=== PATIENT | female | born 1950 | race Caucasian/White ===

== ENCOUNTER 2016-06-04 08:32 | Observation (INO) | payer BC, OTHER ==
--- NOTE | ~2016-06-04 | DS ---
Discharge Summary [id number] [place]. [address] NAME: IRIS BYERS : 46 STATUS : DIS Laina PAT#: [id number] AGE: 65 ADM/REG DATE : 06/04/16 MR#: [id number] REPORT SERV DATE: 06/05/16 DICTATED BY: NARA CAMIOL DATE: 06/04/16 REPORT STATUS : Draft TRANSCRIBED BY: MODL DATE: 06/04/16 ADMISSION DATE: 06/04/2016 DISCHARGE DATE: 06/04/2016 PRINCIPAL DIAGNOSIS: Rectal prolapse with mild lower gastrointestinal bleeding. SECONDARY DIAGNOSIS: 1. Chronic obstructive pulmonary disease. 2. Hemorrhoids. 3. Rectal tear. HISTORY OF PRESENT ILLNESS: Please see my dictation from 06/04. HOSPITAL COURSE: Admitted in transfer for rectal prolapse which upon arrival to the hospital was found to not be prolapsed at all but with stigmata of bleeding from other source being evident and external hemorrhoids which were not anticipated to be reducible. The patient did upon straining for a bowel movement did in fact re-prolapse her rectum. She was seen by colorectal surgeon, Dr. Kia Pena, who was able to reinsert the rectal tissue. No further bleeding was evident. She was instructed to take laxatives every day and not strain with bowel movements but following up with Dr. Pena in her office as an outpatient. At discharge, she was found to be on 2 beta blockers, was taken off atenolol, left on Coreg with benazepril added to her regimen. Other medications remained unchanged. She will follow up with Dr. Kia Pena as scheduled in two weeks. TATUM/HUNTER Nara Camilo M.D. / [id number] CC: Vitor Howard N.P. Shauna Lorenzo-Rivero, M.D.
--- NOTE | ~2016-06-04 | CN ---
Consultation Report [facility] [address] [place]. [address] NAME: IRIS HOLLIS : 46 STATUS : ADM Laina PAT#: [id number] AGE: 65 ADM/REG DATE : 06/04/16 MR#: [id number] REPORT SERV DATE: 06/04/16 DICTATED BY: NARA CAMILO DATE: 06/04/16 REPORT STATUS : Draft TRANSCRIBED BY: MODL DATE: 06/04/16 DATE OF CONSULTATION: 06/04/2016 REASON FOR CONSULTATION: Lower GI bleed and believed to be rectal prolapse. HISTORY OF PRESENT ILLNESS: Ms Hollis is a 65-year-old female with COPD, hypertension, coronary artery disease, who presents to [facility] with a chief complaint of having blood in her panties. The patient was found to have what was believed to be a rectal prolapse. They tried to reduce the prolapse, however, it would not reduce. The patient denies any pain there. She states this bleeding has only occurred for the last day. She does have a history of chronic constipation with small pebble-like stools. She denies any bleeding from elsewhere. She denies any nausea, vomiting, although has had a sour stomach. Her appetite has been okay. She denies weight loss. The patient has had some occasional headaches, but no chest pain. No abdominal pain. No shortness of breath, coughing, or wheezing. No swelling. No fevers or chills. Remainder of review of systems are negative. PAST MEDICAL HISTORY: As mentioned above. PAST SURGICAL HISTORY: She has had history hysterectomy, never had a colonoscopy before. MEDICATIONS: Include Zantac, Coreg, atenolol, Synthroid, and Percocet. ALLERGIES: NO DRUG ALLERGIES. FAMILY HISTORY: Positive for prostate cancer in her brother. SOCIAL HISTORY: The patient quit smoking a couple of months ago. She lives with her brother now. PHYSICAL EXAMINATION: VITAL SIGNS: On presentation, blood pressure 132/88, pulse 80, respirations 16, afebrile. GENERAL: Awake, alert, and oriented x3. No apparent distress. HEENT: Pupils are equal and reactive to light. Extraocular movements are intact. No cranial nerve deficits. Moist mucous membranes. Normal oropharynx. NECK: Revealed no jugular venous distention, carotid bruits, lymphadenopathy, or goiter. CARDIAC: Regular rate and rhythm. No murmurs, gallops, or rubs. LUNGS: Clear to auscultation bilaterally with good respiratory excursion. ABDOMEN: Nondistended, nontender. Bowel sounds normoactive. EXTREMITIES: No cyanosis, clubbing, or edema. Good pulses and capillary refill. NEUROLOGICALLY: She had normal sensory and motor function, normal gait and station. RECTAL: Significant for some external hemorrhoids, which were not inflamed, nonbleeding at 6 o'clock and at 12 o'clock, however, there was actually a small rectal tear with stigmata of recent bleeding. There was no rectal prolapse whatsoever and no blood in her undergarment, which she had been wearing for the last six hours. Consultation Report [id number] [facility] [place]. [address] NAME: IRIS HOLLIS : 46 STATUS : ADM Laina PAT#: [id number] AGE: 65 ADM/REG DATE : 06/04/16 MR#: [id number] REPORT SERV DATE: 06/04/16 DICTATED BY: NARA CAMILO DATE: 06/04/16 REPORT STATUS : Draft TRANSCRIBED BY: HUNTER DATE: 06/04/16 LABORATORY EVALUATION: Outside hospital: White count 8.5, H and H 12 and 36, and platelets 146. Sodium 137, potassium 3.7, chloride 102, bicarb 29, BUN 20, creatinine 0.9, and glucose 106. ASSESSMENT AND PLAN: 1. Rectal tear with anorectal lower gastrointestinal bleed. This was not an emergency, does not require hospitalization. In fact, topical care with Anusol and tucks pad should be adequate. The hemorrhoid themselves, which were misidentified as rectal prolapse at the [facility] emergency department. We will go ahead and send her home. We tried to make an appointment with one of the Gastrointestinal folks locally as she has not had a screening colonoscopy in the past. However, the diagnosis is not in doubt and does not require further intervention, in particular, surgical intervention at this time. 2. Hypertension. The patient is on two beta-blockers rather than deferring drug classes. The atenolol is not offering no further benefit to her carvedilol, so instead given her elevated blood pressure, we will initiate Lotensin and discharge her with that and having Dr. Zhang follow that up as an outpatient. TATUM/HUNTER Nara Camilo M.D. / [id number] CC: Vitor Howard N.P. [facility]
--- NOTE | ~2016-06-04 | CN ---
Consultation Report [facility] [address] [place]. [address] NAME: IRIS HOLLIS : 46 STATUS : DIS Laina PAT#: [id number] AGE: 65 ADM/REG DATE : 06/04/16 MR#: [id number] REPORT SERV DATE: 06/04/16 DICTATED BY: RAAD PENA DATE: 06/04/16 REPORT STATUS : Draft TRANSCRIBED BY: MODL DATE: 06/04/16 CONSULTATION DATE OF CONSULTATION: 06/04/2016 REASON FOR CONSULTATION: Rectal prolapse. HISTORY OF PRESENT ILLNESS: Ms. Hollis is a 65-year-old female with multiple comorbidities, COPD. She had an OK in 2010 and hypertension who noticed bright red blood, presumed per rectum, she is not sure if it was also in her urine and rectal prolapse. This required manual reduction. It does also spontaneously reduce and she does suffer from chronic constipation. One medical professional was unable to reduce it and for this reason, Colorectal Surgery was called. Please see Dr. Mills's dictation for past medical history, past surgical history, allergies, medications, social history, and family history. REVIEW OF SYSTEMS: As stated in the HPI, otherwise, negative. PHYSICAL EXAMINATION: VITAL SIGNS: Temperature 98.0, respirations 16, and blood pressure 134/95. GENERAL: Alert thin elderly white female, in no acute distress. HEENT: Normocephalic, atraumatic. EOMI. PERRLA. Oropharynx is clear. NECK: Supple. No lymphadenopathy. LUNGS: Clear to auscultation bilaterally. HEART: Regular rate and rhythm. ABDOMEN: Soft, nontender, nondistended. : Perineal exam, the patient simply bends over and the rectal prolapse prolapses out of the anus. It easily reduces and it did stay reduced. She has a patulous anus. EXTREMITIES: Moves all extremities well. NEUROLOGIC: Cranial nerves 2 through 12 intact. SKIN: No rashes. LAB DATA: These labs are per [place] [facility]: White count 8.5, H and H 12.1 and 35.5, and platelets of 146. Electrolytes within normal range. Creatinine is 0.9. INR 1.0. ASSESSMENT AND PLAN: Reducible rectal prolapse. PLAN: At this point due to the patient's comorbidities and age, I would recommend bowel prep 1 day followed by colonoscopy the next followed by Altemeier perineal rectosigmoidectomy. I have discussed the risks, benefits, and alternatives. She understands and is willing to proceed. This can be done as an outpatient. We will also need cardiac clearance from Dr. Worley who had originally diagnosed her with the OK in 2010 and she will need to stay on the MiraLAX 1 capful daily. Consultation Report [id number] [id number] NAME: IRIS HOLLIS : 46 STATUS : DIS Laina PAT#: [id number] AGE: 65 ADM/REG DATE : 06/04/16 MR#: [id number] REPORT SERV DATE: 06/04/16 DICTATED BY: RAAD PENA DATE: 06/04/16 REPORT STATUS : Draft TRANSCRIBED BY: HUNTER DATE: 06/04/16 It is my pleasure participating in the care of your patient. MITZY/HUNTER Raad Pnea M.D. / [id number] CC: Vitor Howard N.P.
[~2016-06-04 08:32] MED LIST: ATENOLOL PO; FIORINALC PO; INSNOV7030 SC; INSNOVN SC; LEVOTHYROXIN88 MCG PO; PRAVAC PO; RANITIDINE PO; RANITIDINE300 MG PO; SOMAVERT SC; ZOL100 PO
[2016-06-04] MEDS ORDERED: ATEN50 PO (13:33)
[2016-06-04] MEDS ORDERED: PERCOCET 10/3251 TAB PO (13:34)
[2016-06-04] MEDS ORDERED: REFRESH OPH (13:34)
[2016-06-15] MEDS ORDERED: ZANTAC300 MG PO (12:03)
[2016-06-15] MEDS ORDERED: COREG25 PO (12:04)
[2016-06-15] MEDS ORDERED: ATEN50 PO (12:04)
[2016-06-15] MEDS ORDERED: ENDOCET1 TA3 PO (12:05)
[2016-06-15] MEDS ORDERED: LEVOTHYROXIN50 MCG PO (12:05)
[2016-06-15] MEDS ORDERED: NAP500 PO (12:06)
== END 2016-06-04 18:03 | disposition home or self-care (01) ==
LOC: 4SO 08:32
DX: K62.3 Rectal prolapse (principal); J44.9 Chronic obstructive pulmonary disease, unspecified; K64.9 Unspecified hemorrhoids; I25.2 Old myocardial infarction; I10 Essential (primary) hypertension; I25.10 Atherosclerotic heart disease of native coronary artery without angina pectoris; Z90.710 Acquired absence of both cervix and uterus; Z79.899 Other long term (current) drug therapy; Z87.891 Personal history of nicotine dependence
CPT/HCPCS: A9270-GY; G0378

== ENCOUNTER 2016-06-23 09:46 | Day surgery (SDC) | payer BC, OTHER ==
--- NOTE | ~2016-06-23 | OP ---
Record Of Operation [facility] [address] [address] NAME: IRIS BYERS : 46 STATUS : REG [facility] PAT#: [id number] AGE: 65 ADM/REG DATE : 06/23/16 MR#: [id number] REPORT SERV DATE: 06/23/16 DICTATED BY: RAAD PENA DATE: 06/23/16 REPORT STATUS : Draft TRANSCRIBED BY: HUNTER DATE: 06/23/16 DATE OF PROCEDURE: PREPROCEDURE DIAGNOSIS: Rectal prolapse. POSTPROCEDURE DIAGNOSIS: Rectal prolapse. PROCEDURE: Aborted colonoscopy. DESCRIPTION OF PROCEDURE: The patient was taken to the endoscopy suite, positioned in the left lateral decubitus position, and informed consent was obtained followed by IV sedation delivered by AGRONOMIST. Digital rectal exam was performed. She had a patulous anus, but no evidence of prolapse at the time of the colonoscopy. The rectal vault actually appeared normal. At the rectosigmoid junction, at 15 cm, there was redundant and edematous mucosa consistent with rectal prolapse. However, due to the amount of prolapse, repositioning, pressure, etc. after 50 minutes without progress past this area, there was a concern that this may lead to perforation or bleeding with surgery planned for the next day. The decision was simply to abort the procedure and perform colonoscopy after the resection. The patient tolerated the procedure well. MITZY/HUNTER Raad Pena M.D. / [id number] CC: Vitor Gunter N.P.
[~2016-06-23 09:46] MED LIST changes: +ATEN50 PO; +COREG25 PO; +ENDOCET1 TA3 PO; +LEVOTHYROXIN50 MCG PO; +NAP500 PO; +PERCOCET 10/3251 TAB PO; +REFRESH OPH; +ZANTAC300 MG PO
== END 2016-06-23 23:59 | disposition home health service (06) ==
LOC: DMU 09:46
PROVIDERS: Surgery
PROC: 0DJD8ZZ Inspection of Lower Intestinal Tract, Via Natural or Artificial Opening Endoscopic (ICD-10-PCS; principal; 2016-06-23 11:30)
DX: K62.3 Rectal prolapse (principal); I10 Essential (primary) hypertension; I25.10 Atherosclerotic heart disease of native coronary artery without angina pectoris; I25.2 Old myocardial infarction; E03.9 Hypothyroidism, unspecified; F41.9 Anxiety disorder, unspecified; F32.9 Major depressive disorder, single episode, unspecified; J44.9 Chronic obstructive pulmonary disease, unspecified; Z87.891 Personal history of nicotine dependence; Z79.899 Other long term (current) drug therapy; Z90.710 Acquired absence of both cervix and uterus; Z98.890 Other specified postprocedural states

== ENCOUNTER 2016-06-24 05:47 | Inpatient (IN) | payer BC, OTHER ==
[2016-06-15 13:53] LABS: HEMATOCRIT 34.3 % (36.0-48.0); HEMOGLOBIN 11.6 g/dL (12.0-16.0)
[2016-06-15 14:02] LABS: BUN (BLOOD UREA NITROGEN) 12 MG/DL (6-23); CHLORIDE, SERUM 95 MMOL/L (96-112); CO2 (CARBON DIOXIDE) 32 MMOL/L (24-34); CREATININE 0.89 MG/DL (0.55-1.02); GFR AFRICAN AMERICAN 78 ML/MIN (>=60); GFR NON AFRICAN AMERICAN 67 ML/MIN (>=60); GLUCOSE, SERUM 72 MG/DL (60-99); POTASSIUM, SERUM 4.1 MMOL/L (3.5-5.3); SODIUM, SERUM 134 MMOL/L (135-148)
--- NOTE | ~2016-06-24 | HP ---
History And Physical [address] [place]. [address] NAME: IRIS BYERS : 46 STATUS : ADM IN [facility]#: [id number] AGE: 65 ADM/REG DATE : 06/24/16 MR#: [id number] REPORT SERV DATE: 06/24/16 DICTATED BY: RAAD JUAREZ DATE: 06/24/16 REPORT STATUS : Draft TRANSCRIBED BY: HUNTER DATE: 06/24/16 DATE OF ADMISSION: 06/24/2016 REASON FOR ADMISSION: Rectal prolapse, status post Altemeier perineal rectosigmoidectomy. PAST MEDICAL HISTORY: COPD, rectal prolapse, coronary artery disease, hypertension, constipation, and myocardial infarction in 2010. PAST SURGICAL HISTORY: Hysterectomy, brain tumor, back surgery, knee surgery, and lung surgery on the right. SOCIAL HISTORY: Quit smoking. FAMILY HISTORY: Positive for prostate cancer in a brother. ALLERGIES: NONE. MEDICATIONS: Promethazine, ranitidine, carvedilol, atenolol, levothyroxine, Endocet, and Naprosyn. REVIEW OF SYSTEMS: As stated in the HPI, otherwise, negative. PHYSICAL EXAMINATION: VITAL SIGNS: 53, 159/88. GENERAL: Alert thin elderly white female, in no acute distress. HEENT: Normocephalic, atraumatic. EOMI. PERRLA. Oropharynx is clear. NECK: Supple. No lymphadenopathy. LUNGS: Clear to auscultation bilaterally. HEART: Regular rate and rhythm. ABDOMEN: Soft, flat, nontender. PERINEAL EXAM: Patulous anus. She has about 8 cm of rectal prolapse, which can be reduced, but recurs. EXTREMITIES: Moves all extremities well. NEUROLOGIC: Cranial nerves 2 through 12 intact. SKIN: No rashes. PLAN: Altemeier perineal rectosigmoidectomy. Discussed risks, benefits, and alternatives. She understands and is willing to proceed. MITZY/HUNTER Raad Juarez M.D. History And Physical [address] [place]. [address] NAME: IRIS BYERS : 48 STATUS : ADM IN PAT#: [id number] AGE: 65 ADM/REG DATE : 06/24/16 MR#: [id number] REPORT SERV DATE: 06/24/16 DICTATED BY: RAAD JUAREZ DATE: 06/24/16 REPORT STATUS : Draft TRANSCRIBED BY: CHRISTINL DATE: 06/24/16 / [id number] CC: Raad Juarez M.D.
--- NOTE | ~2016-06-24 | OP ---
Record Of Operation [facility] [address] [place]. [address] NAME: IRIS BYERS : 46 STATUS : ADM IN PAT#: [id number] AGE: 65 ADM/REG DATE : 06/24/16 MR#: [id number] REPORT SERV DATE: 06/24/16 DICTATED BY: RAAD PENA DATE: 06/24/16 REPORT STATUS : Draft TRANSCRIBED BY: HUNTER DATE: 06/24/16 DATE OF PROCEDURE: 06/24/2016 PREPROCEDURE DIAGNOSIS: Rectal prolapse. POSTPROCEDURE DIAGNOSIS: Rectal prolapse. PROCEDURE: Altemeier (perineal rectus sigmoidectomy). SERVICE STATION MANAGER: Dorothy. DESCRIPTION OF PROCEDURE: The patient was taken to the operating room, induced under general anesthesia in the prone mercedes-knife position, prepped and draped in the usual sterile fashion. TAP block solution was injected as a pudendal nerve block bilaterally. The prolapse was coaxed out through the anus using four short [place] clamps. Then, the [place] retractor with 6 sharp hooks was placed at the anal verge circumferentially. Following this, the rectum was coaxed out through the anus. Incision was made 1 cm from the dentate line circumferentially and then full-thickness resection was performed tagging the mucosa through serosa in four quadrants with 2-0 Vicryl suture, continuing releasing the mesorectum circumferentially using Harmonic scalpel until a total of almost 8 cm prolapse was removed from the rectum. Here, it was transected and full-thickness to full-thickness interrupted sutures placed in four quadrants. The specimen was passed off the table measured at 7.5 cm and sent to Pathology. Then, the anastomosis was created by running from quadrant to quadrant tying at the new quadrant, taking the new stitch and running to the next quadrant to create a full anastomosis. Then, each stay suture was reinforced using a [id number] 2-0 Vicryl stitch. The patient was cleaned and dried. All tags were removed followed by two 4x4s, peripad, and mesh panties. She tolerated the procedure well. MITZY/HUNTER Raad Pena M.D. / [id number] CC: Vitor Gunter N.P.
[2016-06-24 10:16] LABS: HEMATOCRIT 31.5 % (36.0-48.0)
[2016-06-25 06:45] LABS: BASOPHILS 0.3 %; BASOPHILS ABSOLUTE 0.02 10/3/uL (0.0-0.16); EOSINOPHILS 1.1 %; EOSINOPHILS ABSOLUTE 0.09 10/3/uL (0.0-0.53); HEMATOCRIT 30.8 % (36.0-48.0); HEMOGLOBIN 10.9 g/dL (12.0-16.0); IMMATURE GRANULOCYTES 0.1 %; IMMATURE GRANULOCYTES ABSOLUTE 0.01 10/3/uL (0.0-0.11); LYMPHOCYTES 18.8 %; LYMPHOCYTES ABSOLUTE 1.49 10/3/uL (0.67-4.30); MEAN CORPUSCULAR HEMOGLOB 29.8 pg (26.0-34.0); MEAN CORPUSCULAR VOLUME 84.2 fL (80-100); MEAN PLATELET VOLUME 10.6 fL (9.2-13.0); MONOCYTES 10.2 %; MONOCYTES ABSOLUTE 0.81 10/3/uL (0.21-1.20); NEUTROPHILS 69.5 %; NEUTROPHILS ABSOLUTE 5.51 10/3/uL (2.02-8.40); PLATELET COUNT 150 10/3/uL (150-400); RBC DISTRIBUTION WIDTH 12.6 % (12.0-16.0); RED CELL COUNT 3.66 10/6/uL (4.0-5.6)
[2016-06-25 06:47] LABS: MANUAL DIFF NO %; MEAN CORPUS HGB CONC 35.4 g/dL (32.0-36.0); WHITE BLOOD CELLS 7.9 10/3/uL (4.5-10.5)
[2016-06-25 06:56] LABS: BUN (BLOOD UREA NITROGEN) 14 MG/DL (6-23); GFR AFRICAN AMERICAN 68 ML/MIN (>=60); GFR NON AFRICAN AMERICAN 58 ML/MIN (>=60); SODIUM, SERUM 139 MMOL/L (135-148)
[2016-06-25 06:57] LABS: CALCIUM, SERUM 7.7 MG/DL (8.5-10.4); CHLORIDE, SERUM 105 MMOL/L (96-112); CO2 (CARBON DIOXIDE) 25 MMOL/L (24-34); GLUCOSE, SERUM 129 MG/DL (60-99); POTASSIUM, SERUM 3.1 MMOL/L (3.5-5.3)
[2016-06-25] MEDS ORDERED: MIRALAX POWDER1 PKT PO (09:54)
[2016-06-25] MEDS ORDERED: MOMUD PO (09:55)
[2016-06-25] MEDS ORDERED: DIL2TAB PO (09:56)
== END 2016-06-25 13:23 | disposition home or self-care (01) | DRG 331 ==
LOC: SDC/OF 05:47 → PACU 09:55 → 5SO 12:40
PROVIDERS: Surgery
PROC: 0DBN0ZZ Excision of Sigmoid Colon, Open Approach (ICD-10-PCS; 2016-06-24)
PROC: 0DBQ0ZZ Excision of Anus, Open Approach (ICD-10-PCS; 2016-06-24)
PROC: 0DJD8ZZ Inspection of Lower Intestinal Tract, Via Natural or Artificial Opening Endoscopic (ICD-10-PCS; 2016-06-24)
PROC: 0DTP0ZZ Resection of Rectum, Open Approach (ICD-10-PCS; principal; 2016-06-24 07:45)
DX: K62.3 Rectal prolapse (principal); J44.9 Chronic obstructive pulmonary disease, unspecified; I10 Essential (primary) hypertension; F32.9 Major depressive disorder, single episode, unspecified; D12.7 Benign neoplasm of rectosigmoid junction; F17.210 Nicotine dependence, cigarettes, uncomplicated; E03.9 Hypothyroidism, unspecified; F41.9 Anxiety disorder, unspecified; I25.10 Atherosclerotic heart disease of native coronary artery without angina pectoris; I25.2 Old myocardial infarction; E30.9 Disorder of puberty, unspecified; Z79.899 Other long term (current) drug therapy; Z90.710 Acquired absence of both cervix and uterus; Z98.890 Other specified postprocedural states
CPT/HCPCS: 80048; 84132; 85014; 85018; 85025; 88304; 93005; A9270-GY; C9113; J0360; J0690; J1170; J1885; J2175; J2250; J2710; J2795; J3010